=== PATIENT | female | born 1955 | race Caucasian/White ===

== ENCOUNTER → 2017-11-26 | Outpatient (CLI) | payer BC ==
[~2017-11-26] MED LIST: CLON-1 PO; IBUP-56 PO; NAPR220C12 PO; [UNRECOGNIZED DRUG - CODE] PO
--- NOTE | 2017-11-27 10:21 | RADIOLOGY IMAGING REPORT ---
FACILITY: [facility] PATIENT NAME: DAWSON ANDERSON : [id number] MR: [id number] V: [id number] EXAM DATE: [id number] ORDERING PHYSICIAN: MAHESH PETERSON TECHNOLOGIST: Kelli Veras PROCEDURE:BILATERAL DIGITAL SCREENING MAMMOGRAM WITH CAD ASSISTED INTERPRETATION & 3D TOMOSYNTHESIS COMPARISON:Prior mammograms 10/31/16, 11/09/15, 10/20/14, 09/06/13, 08/20/12, 07/21/11. INDICATIONS:SCREENING FINDINGS: Mildly heterogeneous fibroglandular tissue is seen throughout the breasts. The parenchymal pattern has remained stable allowing for difference in mammographic technique & patient positioning. There is no evidence of malignant appearing mass, malignant appearing calcifications or other secondary sign of malignancy in either breast. DIAGNOSTIC CATEGORY 1--NEGATIVE. RECOMMENDATIONS: ROUTINE MAMMOGRAM AND CLINICAL EVALUATION. IMPRESSION: BIRADS 1: Negative No significant abnormality is seen. Dictated by: Kristina Molina M.D. on 11/26/2017 at 11:31 Transcribed by: KIA on 11/26/2017 at 13:22 Approved by: Kristina Molina M.D. on 11/27/2017 at 10:20 [facility]
== END ==
LOC: MAMO 00:59
PROVIDERS: ATTEND Obstetrics & Gynecology
DX: Z12.31 Encounter for screening mammogram for malignant neoplasm of breast (principal)
CPT/HCPCS: 77063; 77067